=== PATIENT | female | born 1990 | race Caucasian/White ===

== ENCOUNTER 2020-09-28 19:56 | Emergency (ER) | payer BC ==
[~2020-09-28] VITALS: Ht 157.5 cm; Wt 81.6 kg
[2020-09-28 20:00] VITALS: BP_SYST 128
--- NOTE | 2020-09-28 20:08 | NUR ---
Patient to ER bed 8 to gown for evaluation. Side rails up.
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
--- NOTE | 2020-09-28 20:15 | NUR ---
ER Dr. Arora at bedside examining patient.
--- NOTE | 2020-09-28 21:01 | NUR ---
Patient go to US Room with US Tech.
[2020-09-28 21:41] VITALS: BP_SYST 128
--- NOTE | 2020-09-28 21:41 | NUR ---
Patient given written and verbal discharge instructions and verbalizes understanding. ER MD discussed with patient the results and treatment provided. Patient in stable condition. ID arm band removed. No Rx given. 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 Pain Scale 1/10. Opportunity for questions provided and answered.
== END 2020-09-28 21:41 | disposition home or self-care (01) ==
LOC: SED 19:56
DX: S83.411A Sprain of medial collateral ligament of right knee, initial encounter (principal); S39.91XA Unspecified injury of abdomen, initial encounter; Z88.5 Allergy status to narcotic agent; Z88.6 Allergy status to analgesic agent; Z3A.01 Less than 8 weeks gestation of pregnancy; V43.62XA Car passenger injured in collision with other type car in traffic accident, initial encounter; Y93.89 Activity, other specified; Y92.89 Other specified places as the place of occurrence of the external cause; Y99.8 Other external cause status
CPT/HCPCS: 76856-TC; 81025; 99284